=== PATIENT | male | born 1980 | race Caucasian/White ===

== ENCOUNTER 2023-01-20 12:32 | Emergency (ER) | payer BC, SELFPAY ==
--- NOTE | ~2023-01-20 | XR_ITS ---
EXAMINATION: XR chest 2V 01/20/2023 13:10 INDICATION: Shortness of breath. PROCEDURE: 2 view chest COMPARISON: No prior studies FINDINGS: The lungs are clear. The cardiomediastinal silhouette is within normal limits. There are no pleural effusions. There is no pneumothorax suspected. IMPRESSION: 1: NO ACUTE CARDIOPULMONARY DISEASE. Reviewed, dictated and finalized at location L.
[2023-01-20 12:42] VITALS: BP 141/82; PULSE 70; RESP 18; TEMP 36.8; O2SAT 97
--- NOTE | 2023-01-20 13:22 | ED.GENADULT ---
HPI - General Adult General Chief complaint: Upper Respiratory Infection Stated complaint: upper respiratory Source: patient Mode of arrival: ambulatory Limitations: no limitations History of Present Illness HPI narrative: Patient presents for evaluation of sick symptoms for last 4 days. Symptoms include sinus congestion, green rhinorrhea, bilateral ear congestion/fullness, cough, SOB, and subjective fever. No nausea, vomiting or diarrhea. He spent some time with several individuals who now have similar symptoms. He states several individuals were tested for COVID with negative results. He smokes 1/2 ppd. He has had COVID in the past. Related Data Home Medications Medication Instructions Recorded Confirmed amlodipine 5 mg tablet mg 01/20/23 atorvastatin 40 mg tablet mg 01/20/23 brexpiprazole 2 mg tablet (Rexulti) mg 01/20/23 diclofenac sodium 75 mg mg PO 01/20/23 tablet,delayed release levothyroxine 75 mcg tablet mcg 01/20/23 pantoprazole 40 mg tablet,delayed mg PO 01/20/23 release sildenafil 100 mg tablet mg 01/20/23 Allergies Allergy/AdvReac Type Severity Reaction Status Date / Time No Known Allergies Allergy Verified 01/20/23 12:39 Review of Systems Review of Systems: CONSTITUTIONAL: Reports subjective fever. Denies chills or sweats. EYES: Denies visual changes, redness, or discharge. ENT: Reports bilateral ear pain/fullness, rhinorrhea, sinus congestion CARDIOVASCULAR: Denies chest pain, palpitations, or edema. RESPIRATORY: Reports cough and shortness of breath GASTROINTESTINAL: Denies abdominal pain, nausea, vomiting, or diarrhea. GENITOURINARY: Denies dysuria or hematuria. SKIN: Denies rash or itching. MUSCULOSKELETAL: Denies back pain, joint pain, or myalgia. NEUROLOGIC: Denies headache, numbness, dizziness, or weakness. PSYCHIATRIC: Denies anxiety or depression. [facility] Past Medical History Medical History (Updated 01/20/23 @ 13:30 by NATHALIA Mendiola, [employer]) Hyperlipidemia Hypertension Hypothyroidism Surgical History Surgical History (Updated 01/20/23 @ 13:25 by NATHALIA Mendiola, [employer]) No pertinent past surgical history Family History Family History Mother Family history non-contributory Social History Social History (Updated 01/20/23 @ 13:26 by Tapan Ann, [facility], ) Smoking packs per day: 0.5 Smoking cigarettes per day: 10.0 Smoking status: Current every day smoker Living arrangements: alone Gender identity (if verbalized by the patient): Male Spiritual care concerns: No Exam Narrative: GENERAL: Appears acutely ill but nontoxic. HEAD: Normocephalic, atraumatic. EYES: PERRLA and EOMI. ENT: There is thick yellow/green drainage in bilateral nares. Mucous membranes moist. Oropharynx without tonsillar hypertrophy exudate or other lesions. Bilateral TMs pearly whitmore nonbulging NECK: Supple. No adenopathy or masses. No carotid bruits or JVD CHEST: Cough present on exam. Mild wheezing noted in posterior lung hernandez bilaterally. No respiratory distress. No wheezes rales or rhonchi HEART: Regular rate and rhythm. No murmur heard. Normal peripheral pulses. ABDOMEN: Soft, nontender, nondistended, normal active bowel sounds. EXTREMITIES: Normal range of motion. No edema. SKIN: Warm, dry, no rash. NEURO: No focal deficits. Alert and oriented x3. PSYCH: Normal mood and affect. Course Course Emergency Course: This is a 42-year-old male who presented for evaluation of sick symptoms for last 4 days. He meets criteria for ABRS based on quality of discharge and presence of fever. CXR negative. COVID negative. Will dc with augmentin and prednisone. Advised on smoking cessation. Follow up with primary provider. Go to ER for difficulty breathing. Pt in agreement with plan of care. Level of Care: Express Care Visit Vital Signs Vital signs: Vital Signs Temperature 36.8 C
== END 2023-01-20 13:41 | disposition home or self-care (01) ==
PROVIDERS: Emergency Provider Nurse Practitioner
DX: R06.02 Shortness of breath (principal); J01.90 Acute sinusitis, unspecified; F17.210 Nicotine dependence, cigarettes, uncomplicated; E78.5 Hyperlipidemia, unspecified; I10 Essential (primary) hypertension; E03.9 Hypothyroidism, unspecified
CPT/HCPCS: 71046; 99213; A4565; G0463